=== PATIENT | male | born 1955 | race Caucasian/White ===

== ENCOUNTER → 2018-02-07 08:19 | Outpatient (CLI) | payer OTHER, SELFPAY ==
[2018-02-07 14:18] LABS: Hemoglobin A1C 5.6 % (0.0-7.0)
[2018-02-07 16:11] LABS: Chol/HDL Ratio 2.5 (1-3.5); Cholesterol 124 mg/dL (140-200); HDL Cholesterol 50 mg/dL (27-67); LDL Cholesterol 63 mg/dL (0-130); Triglycerides 55 mg/dL (30-200); VLDL Cholesterol 11 mg/dL (0-40)
== END ==
PROVIDERS: PCP Nurse Practitioner Family; Visit Provider Nurse Practitioner Family
DX: I25.10 Atherosclerotic heart disease of native coronary artery without angina pectoris (principal); Z95.5 Presence of coronary angioplasty implant and graft; Z79.899 Other long term (current) drug therapy
CPT/HCPCS: 36415; 80061; 83036

== ENCOUNTER → 2018-09-05 15:12 | Outpatient (CLI) | payer OTHER, SELFPAY ==
[2018-09-05 16:52] LABS: Anion Gap 11.5 mEq/L (5-15); Blood Urea Nitrogen 15 mg/dL (7-18); Calcium 9.3 mg/dL (8.5-10.1); Carbon Dioxide 28 mmol/L (21.0-32.0); Chloride 107 mmol/L (98-107); Creatinine,Serum 1.42 mg/dL (0.70-1.30); Estimated Glomerular Filt Rate 51 ml/min (>60); GFR (African American) 62 ML/MIN (>60); Glucose 111 mg/dL (74-106); Potassium 4.5 mmoL/L (3.5-5.1); Sodium 142 mmol/L (136-145)
[2018-09-05 17:16] LABS: Basophils # 0.1 K/mm3 (0-0.2); Basophils % 0.7 % (0.1-2.0); Eosinophils # 0.1 K/mm3 (0.0-0.4); Eosinophils % 1.9 % (0.1-12.0); Hematocrit 43.7 % (42.0-52.0); Hemoglobin 14.3 g/dL (14.1-18.0); Lymphocytes # 2.7 K/mm3 (0.7-4.5); Mean Corpuscular HGB Conc 32.8 g/dL (31.8-35.4); Mean Corpuscular Hemoglobin 29.5 pg (27.0-31.2); Mean Platelet Volume 7.3 fl (7.4-10.4); Monocytes # 0.4 K/mm3 (0.1-1.0); Monocytes % 5.6 % (1.7-9.3); Neutrophils % 54.8 % (37.0-80.0); Platelet Count 274 K/mm3 (142-424); Red Blood Count 4.85 M/mm3 (4.60-6.20); White Blood Count 7.2 K/mm3 (4.8-10.8)
== END ==
PROVIDERS: PCP Physician Assistant; Visit Provider Otolaryngology
DX: Z01.818 Encounter for other preprocedural examination (principal); L57.0 Actinic keratosis
CPT/HCPCS: 36415; 80048; 85025; 93005

== ENCOUNTER → 2019-11-17 09:18 | Outpatient (CLI) | payer OTHER, SELFPAY ==
[2019-11-17 14:16] LABS: Alanine Aminotransferase 46 U/L (12-78); Albumin Level 3.9 gm/dL (3.4-5.0); Albumin/Globulin Ratio 1.2 (1.1-1.8); Alkaline Phosphatase 101 U/L (46-116); Anion Gap 17.5 mEq/L (5-15); Aspartate Amino Transferase 20 U/L (15-37); Bilirubin,Total 0.7 mg/dL (0.2-1.0); Blood Urea Nitrogen 16 mg/dL (7-18); Carbon Dioxide 24 mmol/L (21.0-32.0); Chloride 106 mmol/L (98-107); Chol/HDL Ratio 2.5 (1-3.5); Cholesterol 143 mg/dL (140-200); Creatinine,Serum 0.92 mg/dL (0.70-1.30); Estimated Glomerular Filt Rate 83 ml/min (>60); GFR (African American) 101 ML/MIN (>60); Globulin 3.3 gm/dl (1.3-3.2); Glucose 91 mg/dL (74-106); HDL Cholesterol 57 mg/dL (27-67); LDL Cholesterol 73 mg/dL (0-130); Potassium 4.5 mmoL/L (3.5-5.1); Sodium 143 mmol/L (136-145); Total Protein,Serum 7.2 gm/dL (6.4-8.2); Triglycerides 63 mg/dL (30-200); VLDL Cholesterol 13 mg/dL (0-40)
== END ==
PROVIDERS: Visit Provider Nurse Practitioner Family
DX: E78.49 Other hyperlipidemia (principal)
CPT/HCPCS: 36415; 80053; 80061

== ENCOUNTER → 2020-11-16 08:39 | Outpatient (CLI) | payer MEDICAID, SELFPAY ==
[2020-11-16 14:03] LABS: Chloride 106 mmol/L (98-107); Sodium 138 mmol/L (136-145)
[2020-11-16 14:04] LABS: Potassium 4.7 mmoL/L (3.5-5.1)
[2020-11-16 14:06] LABS: Alanine Aminotransferase 37 U/L (12-78); Albumin Level 4.2 g/dl (3.5-5.0); Albumin/Globulin Ratio 1.4 (1.1-1.8); Alkaline Phosphatase 103 U/L (38-126); Anion Gap 10.7 mEq/L (5-15); Aspartate Amino Transferase 28 U/L (17-59); Bilirubin,Total 0.7 mg/dl (0.2-1.3); Blood Urea Nitrogen 18 mg/dl (9-20); Calcium 10.3 mg/dl (8.4-10.2); Carbon Dioxide 26 mmol/L (22.0-30.0); Chol/HDL Ratio 2.3 (1-3.5); Cholesterol 145 mg/dl (140-200); Estimated Glomerular Filt Rate 85 ml/min (>60); GFR (African American) 103 ML/MIN (>60); Glucose 106 mg/dl (74-100); HDL Cholesterol 63 mg/dl (40-60); Total Protein,Serum 7.2 g/dl (6.3-8.2); Triglycerides 87 mg/dl (30-150); VLDL Cholesterol 17 mg/dL (0-40)
[2020-11-16 14:18] LABS: Direct LDL Cholesterol 69.11 mg/dL (100-129)
== END ==
PROVIDERS: Visit Provider Internal Medicine Cardiovascular Disease
DX: E78.2 Mixed hyperlipidemia (principal)
CPT/HCPCS: 36415; 80053; 80061

== ENCOUNTER 2021-04-11 11:32 | Emergency (ER) | payer MEDICAID, SELFPAY ==
[2021-04-11 11:33] VITALS: BP 167/91; PULSE 88; RESP 16; TEMP 36.7; O2SAT 97; BMI 34.0
--- NOTE | 2021-04-11 11:53 | HMH.EDGENADL ---
ED Disposition Clinical Impression: Left flank pain Disposition: Home, Self-Care Condition on Discharge: Fair Instructions: DI for Joint Pain, DI for Flank Pain Additional Instructions: You have been evaluated for left flank pain. Does not appear to be a kidney stone or other abnormality in the abdomen. Please follow-up with your primary care doctor in 1 to 2 days for symptom recheck. Take anti-inflammatories like Tylenol or Motrin. Return to the emergency department for any new or worsening symptoms, pain, vomiting, other concerns. Referrals: Overall,Dave [Referring] - Time of Disposition: 14:53 - Critical Care Critical Care Time: No Attestation: On 04/11/21, the high probability of a clinically significant, sudden or life threatening deterioration of the following system(s) required my full and direct attention, intervention and personal management. The time I documented below is in addition to time spent performing reported procedures but includes the following listed in this critical care notation. Medical Decision Making - Medical Records Medical records reviewed: Yes: I reviewed the patient's medical records. - Brett Inquiry Pt receiving controlled substance: No Vital Signs: 04/11/21 11:33 04/11/21 12:00 04/11/21 15:18 Temperature 98.1 F 98.1 F Temperature Source Oral Pulse Rate 77 70 Pulse Rate [Right] 88 Respiratory Rate 16 18 20 Blood Pressure 158/95 H 146/89 H Blood Pressure [Right Arm] 167/91 H Blood Pressure Mean 114 Blood Pressure Mean [Right Arm] 116 Blood Pressure Source [Right Arm] Automatic Cuff Blood Pressure Position [Right Arm] Sitting 02 Sat by Pulse Oximetry 97 95 Oxygen Delivery Method Room Air Room Air Room Air - Lab Data Lab Results 04/11/21 12:06: WBC 8.2, RBC 5.39, Hgb 15.7, Hct 49.2, MCV 91.4, MCH 29.2, MCHC 31.9, RDW 13.5, Plt Count 252, MPV 7.9, Neut % (Auto) 53.9, Lymph % (Auto) 37.9, [place] % (Auto) 5.0, Eos % (Auto) 2.1, Baso % (Auto) 1.1, Neut # (Auto) 4.4, Lymph # (Auto) 3.1, [place] # (Auto) 0.4, Eos # (Auto) 0.2, Baso # (Auto) 0.1 04/11/21 12:06: Sodium 138, Potassium 4.3, Chloride 109 H, Carbon Dioxide 23, Anion Gap 10.3, BUN 14, Creatinine 0.90, Estimated Creat Clear 112, Estimated GFR 85, Est GFR ( Amer) 103, Glucose 107 H, Calcium 10.0, Total Bilirubin 0.8, AST 37, ALT 37, Alkaline Phosphatase 98, Total Protein 7.3, Albumin 4.4, Globulin 2.9, Albumin/Globulin Ratio 1.5 04/11/21 12:20: Urine Color Yellow, Urine Appearance Clear, Urine pH 5.5, Ur Specific [place] >= 1.030, Urine Protein Negative, Urine Glucose (UA) Negative, Urine Ketones Negative, Urine Blood Negative, Urine Nitrate Negative, Urine Bilirubin Negative, Urine Urobilinogen 0.2, Ur Leukocyte Esterase Negative Result diagrams: 04/11/21 12:06 04/11/21 12:06 Orders (Tests/Meds): ED MEDICATIONS Discontinued Medications Generic Name Dose Route Start Last Admin Trade Name Roxana PRN Reason Stop Dose Admin Iopamidol 75 ml 04/11/21 14:03 04/11/21 14:04 Iopamidol-370 (76%);100ml Bottle IV 04/11/21 14:04 75 ml ONCE ONE Administration Ketorolac Tromethamine 15 mg 04/11/21 14:51 04/11/21 14:59 Ketorolac 30mg/Ml Vial IV 04/11/21 14:52 15 mg ONCE ONE Administration Sodium Chloride 10 ml 04/11/21 14:03 04/11/21 14:04 Sodium Chloride 0.9% 10ml Syr (Rad Only) IV 04/11/21 14:04 10 ml ONCE ONE Administration Medical Decision Narrative: In summary this is a 65-year-old male presenting to the emergency department with left flank pain. Patient clinically stable on arrival. Vital signs within normal limits. Concern for kidney stone, mass, constipation, lumbar disc disease, osteoarthritis. Will obtain CBC, CMP, urinalysis, CT scan of the abdomen and pelvis. Initial laboratory results are reassuring. No leukocytosis. No renal insufficiency. Urinalysis shows no red blood cells or signs of infection. CT abdomen pelvis shows a hepatic cyst a
--- NOTE | 2021-04-11 11:54 | CT_ITS ---
PROCEDURE: CT ABDOMEN PELVIS W CON CLINICAL INDICATION: left flank pain COMPARISON: No exams were available for comparison TECHNIQUE: IV Contrast: 75ML Isovue 370 Oral Contrast None Axial images obtained with sagittal and coronal reformats. All CT scans at the facility use one or more dose reduction, viz: automated exposure control, ma/kV adjustment per patient size (including targeted exams where dose is matched to indication, i.e. head), or iterative reconstruction technique. FINDINGS: LOWER THORAX: Coronary artery stents and or calcification noted. 4 mm noncalcified nodule right lower lobe laterally. 4 mm noncalcified nodule left lower lobe laterally. ABDOMEN & PELVIS: Prior cholecystectomy. 8 mm hypodensity is present in the right hepatic lobe posteriorly consistent with a small cyst. The spleen, adrenal glands, have an unremarkable appearance. There is a punctate calcification in the junction of the body and head of the pancreas. There has been a prior cholecystectomy with mild prominence of the common hepatic duct measuring up to 13 mm. Mixed air in soft tissue density noted in the the region head of the pancreas consistent with a duodenal diverticulum. No renal or ureteral calculi. No hydronephrosis. Small hypodensity is present in the right kidney posteriorly at 5 mm and may be due to small renal cyst. No intestinal obstruction or free air. No evidence of appendicitis. No evidence of diverticulitis. Coarse central prostate calcifications are present. There are few scattered colonic diverticula. There are some nondistended fluid-filled loops of small bowel which are nonspecific. No acute bony findings. There are mild degenerative changes in the hips and lumbar spine. There is a small right inguinal hernia containing fat. IMPRESSION: 1. No acute finding. 2. Numerous incidental nonacute findings as described above. Dictated by: Jewel Foss MD 04/11/2021 14:33 Jewel Foss MD in [facility] 04/11/2021 14:33
[2021-04-11 12:00] VITALS: BP 158/95; PULSE 77; RESP 18; O2SAT 95
[2021-04-11 12:22] LABS: Basophils # 0.1 K/mm3 (0-0.2); Basophils % 1.1 % (0.1-2.0); Eosinophils # 0.2 K/mm3 (0.0-0.4); Eosinophils % 2.1 % (0.1-12.0); Hematocrit 49.2 % (42.0-52.0); Hemoglobin 15.7 g/dL (14.1-18.0); Lymphocytes # 3.1 K/mm3 (0.7-4.5); Lymphocytes % 37.9 % (10-50); Mean Corpuscular HGB Conc 31.9 g/dL (31.8-35.4); Mean Corpuscular Hemoglobin 29.2 pg (27.0-31.2); Mean Corpuscular Volume 91.4 fl (80-94); Mean Platelet Volume 7.9 fl (7.4-10.4); Monocytes # 0.4 K/mm3 (0.1-1.0); Neutrophils # 4.4 K/mm3 (1.8-7.8); Neutrophils % 53.9 % (37.0-80.0); Platelet Count 252 K/mm3 (142-424); Red Blood Count 5.39 M/mm3 (4.60-6.20); Red Cell Distribution Width 13.5 % (11.5-17.5); White Blood Count 8.2 K/mm3 (4.8-10.8)
[2021-04-11 12:30] LABS: Microscopic, Urine URINE MICROSCOPIC (MICROSCOPIC)
[2021-04-11 12:35] LABS: Appearance,Urine CLEAR (Clear); Bilirubin,Urine Negative (Negative); Blood, Urine Negative (Negative); Color,Urine YELLOW (Yellow); Glucose,Urine (UA) Negative (Negative); Ketones,Urine Negative (Negative); Leukocyte Esterase,Urine Negative (Negative); Nitrate,Urine Negative (Negative); PH,Urine 5.5 (5.0-8.5); Protein,Urine Negative (Negative); Specific Gravity, Urine >= 1.030 (1.005-1.030); Urobilinogen,Urine 0.2 EU/dl (0.2)
[2021-04-11 13:00] LABS: Alanine Aminotransferase 37 U/L (12-78); Albumin Level 4.4 g/dl (3.5-5.0); Albumin/Globulin Ratio 1.5 (1.1-1.8); Alkaline Phosphatase 98 U/L (38-126); Anion Gap 10.3 mEq/L (5-15); Aspartate Amino Transferase 37 U/L (17-59); Bilirubin,Total 0.8 mg/dl (0.2-1.3); Blood Urea Nitrogen 14 mg/dl (9-20); Carbon Dioxide 23 mmol/L (22.0-30.0); Chloride 109 mmol/L (98-107); Creatinine Clearance Estimated 112 mL/min (50-200); Estimated Glomerular Filt Rate 85 ml/min (>60); GFR (African American) 103 ML/MIN (>60); Globulin 2.9 g/dL (1.3-3.2); Glucose 107 mg/dl (74-100); Potassium 4.3 mmoL/L (3.5-5.1); Sodium 138 mmol/L (136-145); Total Protein,Serum 7.3 g/dl (6.3-8.2)
[2021-04-11 15:18] VITALS: BP 146/89; PULSE 70; RESP 20; TEMP 36.7; O2SAT 99
== END 2021-04-11 15:18 | disposition home or self-care (01) ==
PROVIDERS: Emergency Provider Emergency Medicine; PCP Nurse Practitioner Family
DX: M25.552 Pain in left hip (principal); R10.32 Left lower quadrant pain; I25.10 Atherosclerotic heart disease of native coronary artery without angina pectoris; I10 Essential (primary) hypertension; E78.5 Hyperlipidemia, unspecified; I25.2 Old myocardial infarction; Z79.899 Other long term (current) drug therapy
CPT/HCPCS: 74177; 80053; 81001; 85025; 96374; 99283; Q9967

== ENCOUNTER 2021-05-14 08:24 | Emergency (ER) | payer MEDICAID, SELFPAY ==
[2021-05-14] VITALS (12 sets, daily range): BP systolic 116–161; BP diastolic 58–93; PULSE 61–86; RESP 16–18; TEMP 36.8–36.9; O2SAT 97–98; BMI 32.5
--- NOTE | 2021-05-14 08:48 | CT_ITS ---
PROCEDURE INFORMATION: Exam: CT Abdomen And Pelvis Without Contrast Exam date and time: 05/14/2021 8:48 AM Age: 65 years old Clinical indication: Abdominal pain; Left; Patient HX: L. Flank pain ---. Gallbladder removed; Additional info: L. Flank pain TECHNIQUE: Imaging protocol: Computed tomography of the abdomen and pelvis without contrast. Radiation optimization: All CT scans at this facility use at least one of these dose optimization techniques: automated exposure control; mA and/or kV adjustment per patient size (includes targeted exams where dose is matched to clinical indication); or iterative reconstruction. COMPARISON: CT ABDOMEN PELVIS W CON 04/11/2021 1:56 PM FINDINGS: Liver: Normal. No mass. Gallbladder and bile ducts: Cholecystectomy The common duct is prominent. It measures 14 millimeters. This may be due to post cholecystectomy state and elderly status. However, if biliary obstruction is suspected clinically, recommend further evaluation Pancreas: Normal. No ductal dilation. Spleen: Normal. No splenomegaly. Adrenal glands: Normal. No mass. Kidneys and ureters: Punctate nonobstructing left renal calculus No ureteral calculus Stomach and bowel: No obstruction. No mucosal thickening. No diverticulitis Appendix: Normal appendix Intraperitoneal space: 2.6 collection of air and debris projecting off of the 3rd duodenum. Most likely represents duodenal diverticulum., Less likely duodenal ulcer. Vasculature: Coronary artery calcifications may indicate coronary artery disease. Lymph nodes: Unremarkable. No enlarged lymph nodes. Urinary bladder: Unremarkable as visualized. Reproductive: Unremarkable as visualized. Bones/joints: Unremarkable. No acute fracture. Soft tissues: Mesh herniorrhaphy anterior in the abdomen adjacent to the umbilical region Bilateral inguinal hernias contain fat IMPRESSION: There is no evidence of ureteral calcifications. No diverticulitis 2.6 collection of air and debris projecting off of the 3rd duodenum. Most likely represents duodenal diverticulum., Less likely duodenal ulcer.
[2021-05-14 08:49] LABS: Microscopic, Urine URINE MICROSCOPIC (MICROSCOPIC)
--- NOTE | 2021-05-14 08:49 | HMH.EDGENADL ---
ED Disposition Clinical Impression: Left flank pain Disposition: Home, Self-Care Condition on Discharge: Good Instructions: DI for Pleurisy Prescriptions: methylPREDNISolone [Medrol] 4 mg PO DIRECTED #21 pack Transmission Status: Pending to [id number] Referrals: Provider,Referral, [Primary Care Provider] - - Critical Care Critical Care Time: No Attestation: On 05/14/21, the high probability of a clinically significant, sudden or life threatening deterioration of the following system(s) required my full and direct attention, intervention and personal management. The time I documented below is in addition to time spent performing reported procedures but includes the following listed in this critical care notation. Medical Decision Making - Medical Records Medical records reviewed: Yes: I reviewed the patient's medical records. - Brett Inquiry Pt receiving controlled substance: No Vital Signs: 05/14/21 08:26 05/14/21 09:12 05/14/21 09:33 Temperature 98.5 F Temperature Source Oral Pulse Rate 70 71 Pulse Rate [Right] 86 Respiratory Rate 16 Blood Pressure 157/83 H Blood Pressure [Right Arm] 161/93 H Blood Pressure Mean 110 Blood Pressure Mean [Right Arm] 115 02 Sat by Pulse Oximetry 97 98 98 05/14/21 09:45 05/14/21 10:00 05/14/21 10:15 Temperature Temperature Source Pulse Rate 67 62 64 Pulse Rate [Right] Respiratory Rate Blood Pressure 156/88 H Blood Pressure [Right Arm] Blood Pressure Mean 107 Blood Pressure Mean [Right Arm] 02 Sat by Pulse Oximetry 97 97 97 05/14/21 10:30 05/14/21 11:00 05/14/21 11:01 Temperature Temperature Source Pulse Rate 61 Pulse Rate [Right] Respiratory Rate Blood Pressure 116/58 L 134/68 Blood Pressure [Right Arm] Blood Pressure Mean 84 90 Blood Pressure Mean [Right Arm] 02 Sat by Pulse Oximetry 97 - Lab Data Lab results reviewed: Yes: I reviewed the patient's lab results. Lab Results 05/14/21 08:37: WBC 7.9, RBC 5.16, Hgb 15.7, Hct 45.6, MCV 88.3, MCH 30.5, MCHC 34.5, RDW 13.9, Plt Count 214, MPV 8.1, Neut % (Auto) 60.3, Lymph % (Auto) 31.8, [place] % (Auto) 4.0, Eos % (Auto) 3.1, Baso % (Auto) 0.8, Neut # (Auto) 4.8, Lymph # (Auto) 2.5, [place] # (Auto) 0.3, Eos # (Auto) 0.2, Baso # (Auto) 0.1 05/14/21 08:37: Sodium 141, Potassium 3.9, Chloride 108 H, Carbon Dioxide 25, Anion Gap 11.9, BUN 14, Creatinine 0.90, Estimated Creat Clear 107, Estimated GFR 85, Est GFR ( Amer) 103, Glucose 151 H, Calcium 9.4, Total Bilirubin 0.8, AST 25, ALT 29, Alkaline Phosphatase 102, Total Protein 7.1, Albumin 4.3, Globulin 2.8, Albumin/Globulin Ratio 1.5 05/14/21 08:37: Lipase 83 05/14/21 08:45: Urine Color Yellow, Urine Appearance Clear, Urine pH 5.5, Ur Specific [place] >= 1.030, Urine Protein Negative, Urine Glucose (UA) Negative, Urine Ketones Negative, Urine Blood Negative, Urine Nitrate Negative, Urine Bilirubin 1+ A, Urine Urobilinogen 0.2, Ur Leukocyte Esterase Negative, Urine RBC None, Urine WBC 3-5, Ur Squamous Epith Cells 3-5, Calcium Oxalate Crystal 1+, Urine Bacteria None Result diagrams: 05/14/21 08:37 05/14/21 08:37 Orders (Tests/Meds): ED MEDICATIONS Discontinued Medications Generic Name Dose Route Start Last Admin Trade Name Freq PRN Reason Stop Dose Admin Ketorolac Tromethamine 30 mg 05/14/21 08:49 05/14/21 09:13 Ketorolac 30mg/Ml Vial IV 05/14/21 08:50 30 mg ONCE ONE Administration Ondansetron HCl 8 mg 05/14/21 08:49 05/14/21 09:13 Ondansetron 4mg/2ml Vial IV 05/14/21 08:50 8 mg ONCE ONE Administration ORDERS Category Date Time Status Lactic Acid Stat Lab 05/14/21 08:48 Ordered - CT Data CT Scan: Abdomen, Pelvis Time Received: 11:[address] Reviewed: Yes: I have reviewed the patient's CT results, I have viewed the radiologist's interpretation Preliminary Findings: Normal/NAD Medical Decision Narrative: Lab work unremarkable
[2021-05-14 08:50] LABS: Appearance,Urine CLEAR (Clear); Blood, Urine Negative (Negative); Color,Urine YELLOW (Yellow); Glucose,Urine (UA) Negative (Negative); Ketones,Urine Negative (Negative); Leukocyte Esterase,Urine Negative (Negative); Nitrate,Urine Negative (Negative); PH,Urine 5.5 (5.0-8.5); Protein,Urine Negative (Negative); Specific Gravity, Urine >= 1.030 (1.005-1.030); Urobilinogen,Urine 0.2 EU/dl (0.2)
[2021-05-14 08:50] LABS: Basophils # 0.1 K/mm3 (0-0.2); Basophils % 0.8 % (0.1-2.0); Eosinophils # 0.2 K/mm3 (0.0-0.4); Eosinophils % 3.1 % (0.1-12.0); Hematocrit 45.6 % (42.0-52.0); Hemoglobin 15.7 g/dL (14.1-18.0); Lymphocytes # 2.5 K/mm3 (0.7-4.5); Lymphocytes % 31.8 % (10-50); Mean Corpuscular HGB Conc 34.5 g/dL (31.8-35.4); Mean Corpuscular Hemoglobin 30.5 pg (27.0-31.2); Mean Corpuscular Volume 88.3 fl (80-94); Mean Platelet Volume 8.1 fl (7.4-10.4); Monocytes # 0.3 K/mm3 (0.1-1.0); Neutrophils # 4.8 K/mm3 (1.8-7.8); Neutrophils % 60.3 % (37.0-80.0); Platelet Count 214 K/mm3 (142-424); Red Blood Count 5.16 M/mm3 (4.60-6.20); Red Cell Distribution Width 13.9 % (11.5-17.5); White Blood Count 7.9 K/mm3 (4.8-10.8)
[2021-05-14 08:51] LABS: Chloride 108 mmol/L (98-107); Potassium 3.9 mmoL/L (3.5-5.1); Sodium 141 mmol/L (136-145)
[2021-05-14 08:52] LABS: Bilirubin,Urine 1+ (Negative)
[2021-05-14 08:53] LABS: Alanine Aminotransferase 29 U/L (12-78); Aspartate Amino Transferase 25 U/L (17-59); Blood Urea Nitrogen 14 mg/dl (9-20); Creatinine Clearance Estimated 107 mL/min (50-200); Estimated Glomerular Filt Rate 85 ml/min (>60); GFR (African American) 103 ML/MIN (>60)
[2021-05-14 08:54] LABS: Albumin Level 4.3 g/dl (3.5-5.0); Albumin/Globulin Ratio 1.5 (1.1-1.8); Alkaline Phosphatase 102 U/L (38-126); Anion Gap 11.9 mEq/L (5-15); Bilirubin,Total 0.8 mg/dl (0.2-1.3); Calcium 9.4 mg/dl (8.4-10.2); Carbon Dioxide 25 mmol/L (22.0-30.0); Globulin 2.8 g/dL (1.3-3.2); Glucose 151 mg/dl (74-100); Total Protein,Serum 7.1 g/dl (6.3-8.2)
[2021-05-14 09:03] LABS: Lipase 83 U/L (23-300)
[2021-05-14 09:21] LABS: Calcium Oxalate Crystals,Urine 1+ /lpf
--- NOTE | 2021-05-14 11:07 | PC.NURSE ---
[address] about [facility] report. spoke with julissa. she states she will call [facility] and see how long. Julissa in ct called back and states that they spoke with [facility] and its being bumped to emergency status and should just be a few minutes.
== END 2021-05-14 12:52 | disposition home or self-care (01) ==
PROVIDERS: Emergency Provider Emergency Medicine
DX: R10.12 Left upper quadrant pain (principal); E78.5 Hyperlipidemia, unspecified; I10 Essential (primary) hypertension; I25.2 Old myocardial infarction; Z79.899 Other long term (current) drug therapy
CPT/HCPCS: 74176; 80053; 81001; 83690; 85025; 96374; 96375; 99283; J2405

== ENCOUNTER 2021-09-01 09:41 | Emergency (ER) | payer MEDICAID, SELFPAY ==
--- NOTE | 2021-09-01 09:39 | ECG_ITS ---
APPROVED REPORT Exam: Resting ECG HR:72 bpm ECG Measurements Heart Rate 72 AXES ME 174 P 36 QRSd 102 QRS 46 QT 350 T 64 QTc 383 Conclusion Normal sinus rhythm Nonspecific T wave abnormality Abnormal ECG Electronically signed by : Kayode Haddad MD 09/01/2021 17:48:20
[2021-09-01 09:42] VITALS: BP 160/91; PULSE 77; RESP 16; TEMP 36.9; O2SAT 98; BMI 33.4
--- NOTE | 2021-09-01 09:46 | XR_ITS ---
PROCEDURE: XR CHEST 2V CLINICAL HISTORY: chest pain COMPARISON: No exams were available for comparison FINDINGS: The cardiomediastinal silhouette and pulmonary vascularity are within normal limits. The lungs are clear without infiltrates, suspicious nodules, or pleural effusions. No acute bony abnormalities. There mild to moderate multilevel degenerate changes of the thoracic spine IMPRESSION: No acute findings. Dictated by: Dr. Alden Deleon MD 09/01/2021 10:47 Dr. Alden Deleon MD in [place] 09/01/2021 10:47
--- NOTE | 2021-09-01 09:46 | CT_ITS ---
PROCEDURE: CT ANGIO CHEST PE PROTOCOL CLINCIAL INDICATION: left sided chest pain, history of stents COMPARISON: No exams were available for comparison TECHNIQUE: IV Contrast: 70ML Isovue 370 Axial images obtained with sagittal and coronal reformats. All CT scans at the facility use one or more dose reduction, viz: automated exposure control, ma/kV adjustment per patient size (including targeted exams where dose is matched to indication, i.e. head), or iterative reconstruction technique. FINDINGS: HEART AND MEDIASTINAL STRUCTURES: Cardiac size is normal. There are coronary artery stents noted. There is mild tortuosity of the descending thoracic aorta. There is excellent vascular opacification and there are no pulmonary emboli identified. LUNGS AND PLEURAL SPACES: The lung jo are well-expanded and appear clear of infiltrate. There is a calcified granuloma subpleural location left upper lobe. There is no pleural fluid. BONY STRUCTURES: There are moderate degenerate changes mid and lower thoracic spine. UPPER ABDOMEN: Post cholecystectomy ADDITIONAL FINDINGS: No other significant abnormalities. IMPRESSION: Negative for pulmonary emboli, see discussion above Dictated by: Dr. Alden Deleon MD 09/01/2021 10:46 Dr. Alden Deleon MD in [facility] 09/01/2021 10:46
[2021-09-01 09:52] VITALS: BP 130/84; PULSE 78; RESP 22; O2SAT 98
[2021-09-01 10:00] VITALS: BP 140/85
[2021-09-01 10:02] LABS: Basophils # 0.1 K/mm3 (0-0.2); Basophils % 1.8 % (0.1-2.0); Eosinophils # 0.2 K/mm3 (0.0-0.4); Eosinophils % 2.6 % (0.1-12.0); Hemoglobin 16.2 g/dL (14.1-18.0); Lymphocytes # 2.5 K/mm3 (0.7-4.5); Lymphocytes % 38.1 % (10-50); Mean Corpuscular HGB Conc 33.1 g/dL (31.8-35.4); Mean Corpuscular Hemoglobin 31.6 pg (27.0-31.2); Mean Corpuscular Volume 95.6 fl (80-94); Monocytes # 0.3 K/mm3 (0.1-1.0); Monocytes % 4.3 % (1.7-9.3); Neutrophils # 3.4 K/mm3 (1.8-7.8); Neutrophils % 53.1 % (37.0-80.0); Platelet Count 229 K/mm3 (142-424); Red Blood Count 5.13 M/mm3 (4.60-6.20); Red Cell Distribution Width 14.3 % (11.5-17.5); White Blood Count 6.5 K/mm3 (4.8-10.8)
[2021-09-01 10:09] LABS: Chloride 106 mmol/L (98-107); Sodium 140 mmol/L (136-145)
[2021-09-01 10:09] LABS: Coronavirus 19, PCR Not Detected (NotDetected); Influenza A, PCR Not Detected (NotDetected); Influenza B, PCR Not Detected (NotDetected)
[2021-09-01 10:10] LABS: Potassium 4.4 mmoL/L (3.5-5.1)
[2021-09-01 10:12] LABS: Blood Urea Nitrogen 9 mg/dl (9-20); Creatinine Clearance Estimated 107 mL/min (50-200); Estimated Glomerular Filt Rate 114 ml/min (>60); GFR (African American) 138 ML/MIN (>60)
[2021-09-01 10:13] LABS: Anion Gap 10.4 mEq/L (5-15); Calcium 9.9 mg/dl (8.4-10.2); Carbon Dioxide 28 mmol/L (22.0-30.0); Glucose 124 mg/dl (74-100)
[2021-09-01 10:27] LABS: Troponin I < 0.01 ng/ml (0.00-0.034)
--- NOTE | 2021-09-01 10:27 | HMH.EDGENADL ---
ED Disposition Clinical Impression: Chronic thoracic back pain Qualifiers: Back pain laterality: bilateral Qualified Code(s): M54.6 - Pain in thoracic spine Disposition: Home, Self-Care Condition on Discharge: Good Prescriptions: methylPREDNISolone [Medrol 4mg tab] 4 mg PO DIRECTED #21 tab Transmission Status: Received by [id number] Referrals: Provider,Referral, [Primary Care Provider] - - Critical Care Critical Care Time: No Attestation: On 09/01/21, the high probability of a clinically significant, sudden or life threatening deterioration of the following system(s) required my full and direct attention, intervention and personal management. The time I documented below is in addition to time spent performing reported procedures but includes the following listed in this critical care notation. Medical Decision Making - Medical Records Medical records reviewed: Yes: I reviewed the patient's medical records. - Brett Inquiry Pt receiving controlled substance: No Vital Signs: 09/01/21 09:42 09/01/21 09:52 09/01/21 10:00 Temperature 98.4 F Temperature Source Oral Pulse Rate 78 Pulse Rate [Radial] 77 Respiratory Rate 16 22 Blood Pressure 130/84 140/85 Blood Pressure [Right Arm] 160/91 H Blood Pressure Mean 99 95 Blood Pressure Mean [Right Arm] 114 Blood Pressure Position Blood Pressure Position [Right Arm] Sitting 02 Sat by Pulse Oximetry 98 98 Oxygen Delivery Method Room Air 09/01/21 10:38 09/01/21 11:00 09/01/21 11:52 Temperature 98 F Temperature Source Oral Pulse Rate 70 67 78 Pulse Rate [Radial] Respiratory Rate 20 17 18 Blood Pressure 130/84 165/104 H 140/91 H Blood Pressure [Right Arm] Blood Pressure Mean Blood Pressure Mean [Right Arm] Blood Pressure Position Sitting Blood Pressure Position [Right Arm] 02 Sat by Pulse Oximetry 99 96 Oxygen Delivery Method Room Air - Lab Data Lab Results 09/01/21 09:50: WBC 6.5, RBC 5.13, Hgb 16.2, Hct 49.0, MCV 95.6 H, MCH 31.6 H, MCHC 33.1, RDW 14.3, Plt Count 229, MPV 9.0, Neut % (Auto) 53.1, Lymph % (Auto) 38.1, [place] % (Auto) 4.3, Eos % (Auto) 2.6, Baso % (Auto) 1.8, Neut # (Auto) 3.4, Lymph # (Auto) 2.5, [place] # (Auto) 0.3, Eos # (Auto) 0.2, Baso # (Auto) 0.1 09/01/21 09:50: Sodium 140, Potassium 4.4, Chloride 106, Carbon Dioxide 28, Anion Gap 10.4, BUN 9, Creatinine 0.70, Estimated Creat Clear 107, Estimated GFR 114, Est GFR ( Amer) 138, Glucose 124 H, Calcium 9.9, Troponin I < 0.01 09/01/21 10:02: SARS-CoV-2 (PCR) Not detected, Influenza A Untype (PCR) Not detected, Influenza Type B (PCR) Not detected Result diagrams: 09/01/21 09:50 09/01/21 09:50 Orders (Tests/Meds): ED MEDICATIONS Discontinued Medications Generic Name Dose Route Start Last Admin Trade Name Freq PRN Reason Stop Dose Admin Aspirin 324 mg 09/01/21 11:04 09/01/21 11:17 Aspirin 81mg Chewable Tablet PO 09/01/21 11:05 324 mg ONCE ONE Administration Iopamidol 70 ml 09/01/21 10:32 09/01/21 10:34 Iopamidol-370 (76%);100ml Bottle IV 09/01/21 10:33 70 ml ONCE ONE Administration Sodium Chloride 40 ml 09/01/21 10:32 09/01/21 10:33 0.9 % Sodium Chloride 50 Ml Vial IV 09/01/21 10:33 40 ml ONCE ONE Administration Medical Decision Narrative: Patient is a 65-year-old male presents the ED today for further evaluation of left-sided back pain. Patient is well-appearing on initial evaluation in no acute distress and vital signs are stable. Differential diagnosis includes aortic dissection, pulmonary embolism, pneumonia, shingles, musculoskeletal back pain spine osteoarthritis. Will further evaluate patient with CBC CMP, I believe that a CT scan of the chest is indicated in this patient with this chronic symptom, which is mildly worse today, he is at low risk for PE but does not PERC out secondary to age. CT scan was obtained and independently interpreted there is no evidenc
[2021-09-01 10:38] VITALS: BP 130/84; PULSE 70; RESP 20; O2SAT 99
[2021-09-01 11:00] VITALS: BP 165/104; PULSE 67; RESP 17; O2SAT 96
[2021-09-01 11:52] VITALS: BP 140/91; PULSE 78; RESP 18; TEMP 36.6; O2SAT 98
== END 2021-09-01 11:54 | disposition home or self-care (01) ==
PROVIDERS: Emergency Medicine; Emergency Provider Student in an Organized Health Care Education/Training Program
DX: R07.9 Chest pain, unspecified (principal); M54.6 Pain in thoracic spine; Z20.822 Contact with and (suspected) exposure to COVID-19; I25.10 Atherosclerotic heart disease of native coronary artery without angina pectoris; I11.0 Hypertensive heart disease with heart failure
CPT/HCPCS: 71046; 71275; 80048; 84484; 85025; 93005; 99283; C9803; Q9967; U0003; U0005

== ENCOUNTER 2022-05-10 19:34 | Observation (INO) | payer MEDICAID, SELFPAY ==
[2022-05-10] VITALS (9 sets, daily range): BP systolic 137–162; BP diastolic 80–94; PULSE 82–96; RESP 18; TEMP 36.8–37; O2SAT 96–99; BMI 34.0; BMI 35.1
--- NOTE | 2022-05-10 19:40 | ECG_ITS ---
APPROVED REPORT Exam: Resting ECG HR:84 bpm ECG Measurements Heart Rate 84 AXES [place] 212 P 63 QRSd 110 QRS 68 QT 353 T 75 QTc 394 Conclusion SINUS RHYTHM WITH FIRST DEGREE AV BLOCK NONSPECIFIC T-WAVE ABNORMALITY ABNORMAL ECG UNCONFIRMED REPORT Electronically signed by : Kayode Haddad MD 05/12/2022 17:33:44
[2022-05-10 20:08] LABS: Basophils # 0.2 K/mm3 (0-0.2); Basophils % 2.7 % (0.1-2.0); Eosinophils # 0.2 K/mm3 (0.0-0.4); Eosinophils % 2.8 % (0.1-12.0); Hematocrit 44.6 % (42.0-52.0); Hemoglobin 15.3 g/dL (14.1-18.0); Lymphocytes # 2.4 K/mm3 (0.7-4.5); Mean Corpuscular HGB Conc 34.3 g/dL (31.8-35.4); Mean Corpuscular Hemoglobin 31.7 pg (27.0-31.2); Mean Corpuscular Volume 92.4 fl (80-94); Mean Platelet Volume 8.5 fl (7.4-10.4); Monocytes # 0.5 K/mm3 (0.1-1.0); Monocytes % 5.7 % (1.7-9.3); Neutrophils # 5.1 K/mm3 (1.8-7.8); Neutrophils % 60.7 % (37.0-80.0); Platelet Count 235 K/mm3 (142-424); Red Blood Count 4.83 M/mm3 (4.60-6.20); Red Cell Distribution Width 13.6 % (11.5-17.5); White Blood Count 8.5 K/mm3 (4.8-10.8)
[2022-05-10 20:12] LABS: Blood Urea Nitrogen 23 mg/dl (9-20); Calcium 9.3 mg/dl (8.4-10.2); Carbon Dioxide 25 mmol/L (22.0-30.0); Chloride 105 mmol/L (98-107); Creatinine Clearance Estimated 110 mL/min (50-200); Estimated Glomerular Filt Rate 75 ml/min (>60); GFR (African American) 91 ML/MIN (>60); Glucose 140 mg/dl (74-100); Magnesium 1.7 mg/dl (1.6-2.3); Potassium 4.1 mmoL/L (3.5-5.1)
[2022-05-10 20:17] LABS: C-Reactive Protein 1.8 mg/L (0-4)
[2022-05-10 20:29] LABS: Troponin I < 0.01 ng/ml (0.00-0.034)
[2022-05-10 20:30] LABS: Procalcitonin 0.052 ng/mL (0.0-2.0)
[2022-05-10 20:33] LABS: Microscopic, Urine URINE MICROSCOPIC (MICROSCOPIC)
[2022-05-10 20:43] LABS: Appearance,Urine CLEAR (Clear); Bilirubin,Urine Negative (Negative); Blood, Urine TRACE-I (Negative); Color,Urine YELLOW (Yellow); Glucose,Urine (UA) Negative (Negative); Ketones,Urine Negative (Negative); Leukocyte Esterase,Urine Negative (Negative); Nitrate,Urine Negative (Negative); PH,Urine 5.5 (5.0-8.5); Protein,Urine 1+ (Negative); Specific Gravity, Urine >= 1.030 (1.005-1.030); Urobilinogen,Urine 0.2 EU/dl (0.2)
[2022-05-10 20:45] LABS: Anion Gap 11.1 mEq/L (5-15); Sodium 137 mmol/L (136-145)
[2022-05-10 20:56] LABS: Bacteria,Urine Trace /lpf; Calcium Oxalate Crystals,Urine 4+ /lpf; WBC,Urine Occasional #/hpf (0-3)
--- NOTE | 2022-05-10 21:16 | HMH.EDSYNC ---
ED Disposition Clinical Impression: Syncope Qualifiers: Syncope type: unspecified Qualified Code(s): R55 - Syncope and collapse Disposition: Admitted as Observation Condition on Discharge: Good Referrals: Shyla Martinez APRN [Primary Care Provider] - - Critical Care Critical Care Time: No Attestation: On 05/10/22, the high probability of a clinically significant, sudden or life threatening deterioration of the following system(s) required my full and direct attention, intervention and personal management. The time I documented below is in addition to time spent performing reported procedures but includes the following listed in this critical care notation. Medical Decision Making - Medical Records Medical records reviewed: Yes: I reviewed the patient's medical records. - Brett Inquiry Pt receiving controlled substance: No Vital Signs: 05/10/22 19:33 05/10/22 20:00 05/10/22 21:01 Temperature 98.6 F Temperature Source Oral Pulse Rate [Apical] 82 Pulse Rate [Orthostatic Lying Apical] Pulse Rate [Orthostatic Sitting Apical] Pulse Rate [Orthostatic Standing Apical] Respiratory Rate 18 Blood Pressure 144/85 H 148/87 H Blood Pressure [Orthostatic Lying Right Arm] Blood Pressure [Orthostatic Sitting] Blood Pressure [Orthostatic Standing] Blood Pressure [Right Arm] 153/84 H Blood Pressure Mean 109 107 Blood Pressure Mean [Right Arm] 107 Blood Pressure Source [Right Arm] Automatic Cuff Blood Pressure Position [Right Arm] Sitting 02 Sat by Pulse Oximetry 96 Oxygen Delivery Method Room Air 05/10/22 21:17 05/10/22 21:18 05/10/22 21:19 Temperature Temperature Source Pulse Rate [Apical] Pulse Rate [Orthostatic Lying Apical] Pulse Rate [Orthostatic Sitting Apical] Pulse Rate [Orthostatic Standing Apical] Respiratory Rate Blood Pressure 137/80 159/93 H 162/94 H Blood Pressure [Orthostatic Lying Right Arm] Blood Pressure [Orthostatic Sitting] Blood Pressure [Orthostatic Standing] Blood Pressure [Right Arm] Blood Pressure Mean 99 115 114 Blood Pressure Mean [Right Arm] Blood Pressure Source [Right Arm] Blood Pressure Position [Right Arm] 02 Sat by Pulse Oximetry Oxygen Delivery Method 05/10/22 21:30 05/10/22 21:31 Temperature Temperature Source Pulse Rate [Apical] Pulse Rate [Orthostatic Lying Apical] 87 Pulse Rate [Orthostatic Sitting Apical] 96 H Pulse Rate [Orthostatic Standing Apical] 94 H Respiratory Rate Blood Pressure 139/84 Blood Pressure [Orthostatic Lying Right Arm] 137/80 Blood Pressure [Orthostatic Sitting] 159/93 H Blood Pressure [Orthostatic Standing] 162/94 H Blood Pressure [Right Arm] Blood Pressure Mean 104 Blood Pressure Mean [Right Arm] Blood Pressure Source [Right Arm] Blood Pressure Position [Right Arm] 02 Sat by Pulse Oximetry Oxygen Delivery Method - Lab Data Lab results reviewed: Yes: I reviewed the patient's lab results. Lab Results 05/10/22 19:53: WBC 8.5, RBC 4.83, Hgb 15.3, Hct 44.6, MCV 92.4, MCH 31.7 H, MCHC 34.3, RDW 13.6, Plt Count 235, MPV 8.5, Neut % (Auto) 60.7, Lymph % (Auto) 28.0, [place] % (Auto) 5.7, Eos % (Auto) 2.8, Baso % (Auto) 2.7 H, Neut # (Auto) 5.1, Lymph # (Auto) 2.4, [place] # (Auto) 0.5, Eos # (Auto) 0.2, Baso # (Auto) 0.2, ESR 16 05/10/22 19:53: Sodium 137, Potassium 4.1, Chloride 105, Carbon Dioxide 25, Anion Gap 11.1, BUN 23 H, Creatinine 1.00, Estimated Creat Clear 110, Estimated GFR 75, Est GFR ( Amer) 91, Glucose 140 H, Calcium 9.3, Magnesium 1.7, Troponin I < 0.01, C-Reactive Protein 1.8, Procalcitonin 0.052 05/10/22 20:27: Urine Color Yellow, Urine Appearance Clear, Urine pH 5.5, Ur Specific [place] >= 1.030, Urine Protein 1+, Urine Glucose (UA) Negative, Urine Ketones Negative, Urine Blood Trace-i, Urine Nitrate Negative, Urine Bilirubin Negative, Urine Urobilinogen 0.2, Ur Leukocyte Esterase Negative, Urine RBC 3-5, Urine WBC Occ
--- NOTE | 2022-05-10 21:56 | CT_ITS ---
PROCEDURE INFORMATION: Exam: CT Head Without Contrast Exam date and time: 05/10/2022 10:08 PM Age: 66 years old Clinical indication: Patient HX: Syncopal episode, passed out; Additional info: Weakness/gait abn TECHNIQUE: Imaging protocol: Computed tomography of the head without contrast. Radiation optimization: All CT scans at this facility use at least one of these dose optimization techniques: automated exposure control; mA and/or kV adjustment per patient size (includes targeted exams where dose is matched to clinical indication); or iterative reconstruction. COMPARISON: No relevant prior studies available. FINDINGS: Brain: Normal. No hemorrhage. Unremarkable white matter. No mass effect. Cerebral ventricles: No ventriculomegaly. Paranasal sinuses: There is mucosal thickening of the left sphenoid sinus. There is mucosal thickening of a right ethmoid air cell. Mastoid air cells: Visualized mastoid air cells are well aerated. Bones/joints: Unremarkable. No acute fracture. Soft tissues: Unremarkable. IMPRESSION: 1. No acute intracranial abnormality. 2. Chronic left sphenoid sinusitis.
[2022-05-10 21:57] LABS: Erythrocyte Sedimentation Rate 16 mm/hr (0-20)
--- NOTE | 2022-05-10 22:57 | PC.NURSE ---
PT able to stand and use urinal with no assistance. Pt resting well.
--- NOTE | 2022-05-10 23:01 | PC.NURSE ---
LILY STEWARD speaking with Dr. Haddad
--- NOTE | 2022-05-10 23:08 | PC.NURSE ---
PATIENT ADMITTED TO [address] OLVERA WITH DX OF SYNCOPE
[2022-05-10 23:14] LABS: Coronavirus 19, PCR Not Detected (NotDetected); Influenza A, PCR Not Detected (NotDetected); Influenza B, PCR Not Detected (NotDetected)
[2022-05-10 23:20] LABS: Troponin I < 0.01 ng/ml (0.00-0.034)
--- NOTE | 2022-05-10 23:45 | PC.NURSE ---
pt arrived to floor via wheelchair at this time
[2022-05-11] VITALS: BP 159/92; PULSE 86; RESP 18; TEMP 36.9; O2SAT 96
--- NOTE | 2022-05-11 01:22 | PC.NURSE ---
Pt's rectal temp at 00:00 vitals 103.3. Removed covers, turned thermostat down, placed ice packs on patient, and put fan in patient's room. Admin meds per JAN.
[2022-05-11 02:00] VITALS: PULSE 80
[2022-05-11 02:42] LABS: Troponin I < 0.01 ng/ml (0.00-0.034)
[2022-05-11 04:00] VITALS: BP 160/90; PULSE 73; PULSE 75; RESP 20; TEMP 36.5; O2SAT 97
--- NOTE | 2022-05-11 05:38 | PC.NURSE ---
Patient has rested intermittently t/o shift. Ambulates to the bathroom independently. Pt has not had further syncope episodes since arriving to the floor. Pt reports no pain. A/O x3.
[2022-05-11 07:08] LABS: Basophils # 0.1 K/mm3 (0-0.2); Eosinophils # 0.1 K/mm3 (0.0-0.4); Eosinophils % 1.7 % (0.1-12.0); Hematocrit 43.6 % (42.0-52.0); Hemoglobin 14.8 g/dL (14.1-18.0); Lymphocytes % 25.9 % (10-50); Mean Corpuscular HGB Conc 33.8 g/dL (31.8-35.4); Mean Corpuscular Hemoglobin 31.2 pg (27.0-31.2); Mean Corpuscular Volume 92.3 fl (80-94); Mean Platelet Volume 8.5 fl (7.4-10.4); Monocytes # 0.4 K/mm3 (0.1-1.0); Monocytes % 5.5 % (1.7-9.3); Neutrophils # 5.1 K/mm3 (1.8-7.8); Neutrophils % 65.8 % (37.0-80.0); Platelet Count 245 K/mm3 (142-424); Red Blood Count 4.72 M/mm3 (4.60-6.20); Red Cell Distribution Width 13.6 % (11.5-17.5); White Blood Count 7.7 K/mm3 (4.8-10.8)
[2022-05-11 07:11] LABS: Chloride 108 mmol/L (98-107)
[2022-05-11 07:12] LABS: Potassium 4.3 mmoL/L (3.5-5.1); Sodium 136 mmol/L (136-145)
[2022-05-11 07:15] LABS: Anion Gap 8.3 mEq/L (5-15); Blood Urea Nitrogen 18 mg/dl (9-20); Calcium 9.3 mg/dl (8.4-10.2); Carbon Dioxide 24 mmol/L (22.0-30.0); Creatinine Clearance Estimated 114 mL/min (50-200); Estimated Glomerular Filt Rate 97 ml/min (>60); GFR (African American) 118 ML/MIN (>60); Glucose 120 mg/dl (74-100)
--- NOTE | 2022-05-11 07:29 | HMH.PHAVTE ---
[facility] Pharmacy VTE Monitoring - Patient Demographics Admission date: 05/10/22 Report Date: 05/11/22 Time: 07:29 Allergies/Adverse Reactions: Patient Allergies No Known Allergies Allergy (Verified 05/14/21 09:07) Height: 1.75 m Weight: 107.586 kg Patient Problems: Current Active Problems Syncope (Acute) - VTE Risk Labs: VTE Related Lab Results Hgb 14.8 g/dL (14.1-18.0) 05/11/22 06:40 Hct 43.6 % (42.0-52.0) 05/11/22 06:40 Plt Count 245 K/mm3 (142-424) 05/11/22 06:40 BUN 18 mg/dl (9-20) 05/11/22 06:40 Creatinine 0.80 mg/dl (0.66-1.25) 05/11/22 06:40 Estimated Creat Clear 114 mL/min (50-200) 05/11/22 06:40 VTE Score: 4 VTE Risk Level: Low Risk - Prophylaxis VTE Prophylaxis Ordered?: Yes Types of VTE Prophylaxis: TEDS Knee High Location of Applied Device: Bilateral Lower Extremeties
--- NOTE | 2022-05-11 07:30 | HMH.PHAINT ---
MEDICATION RECONCILIATION COMPLETED ON PATIENT USING EXTERNAL FILL HISTORY FROM PHARMACY. -ROBIN SCHWAB, DANETTED
[2022-05-11 08:00] VITALS: BP 181/93; PULSE 78; RESP 16; TEMP 36.8; O2SAT 95
--- NOTE | 2022-05-11 08:00 | CA_ITS ---
APPROVED REPORT EXAM: Comprehensive 2D, Doppler, and color-flow Echocardiogram Core Drier: Desirae Remy RT(R) Ht: 5 ft 9 in Wt: 230lbs BSA: 2.19 BP: 148/87 mmHg Indications: smoker, syncope, HTN, hyperlipidemia, CAD, dizziness, marijuana usage. 2D Dimensions LVOT 2.11 cm (M/F) 1.5-2.5 LA Volume 32.00 mL LA Volume Index 14.61 mL/m2 (M/F) 16-34 M-Mode Dimensions RVDd 1.93 cm (0.9-2.6) LA Diam 4.04 cm (1.9-4.0) LVDd 3.94 cm (3.5-5.7) Ao Diam 3.19 cm (2.0-3.7) LVDs 3.14 cm (3.5-5.7) IVSd 0.97 cm (0.6-1.1) PWd 1.09 cm (0.6-1.1) EF (Teich) 42.10% FS 20.30% EDV (Teich) 67.50 mL ESV (Teich) 39.10 mL LV Diastology E Decel Time 180.00 (160-240 msec) E/A Ratio 0.8 MED E' 8.10 (< 7 cm/sec) E'/MED E' Ratio 8.74 (>14) LAT E' 8.30 (<10 cm/sec) E/LAT E' Ratio 8.53 (>14) Mitral Valve MV E Max Gwyn. 71.00 (40-130 cm/s) MV A Velocity 88.00 (40-130 cm/s) E/A Ratio 0.80 MV Decel. Time 180.00 (160-240 ms) MV PHT 53.00 ms Left Ventricle Technically difficult study because of the patient factors and poor acoustic windows. Left atrium is mildly enlarged, left ventricle is normal size, estimated ejection fraction 55% with no regional wall motion abnormality, grade 1 diastolic dysfunction seen without tissue Doppler evidence of raise left atrial pressure. Right Ventricle Right atrium and right ventricle are normal size and contractility. Aortic Valve Aortic valve is minimally thickened and fibrosed there is no aortic stenosis or aortic insufficiency. Mitral Valve Mitral valve grossly normal, there is trace mitral regurgitation. Tricuspid Valve Tricuspid grossly normal, there is trace tricuspid regurgitation, tricuspid regurgitation jet velocity is inadequate for calculation of the right ventricular systolic pressure. Pulmonic Valve Pulmonic valve is poorly visualized. Great Vessels Aortic root is normal size. Inferior vena cava normal size with normal inspiratory collapse. Pericardium No significant pericardial effusion noted. Conclusion 1. Mildly enlarged left atrium, normal left ventricular size, mild concentric left ventricular hypertrophy, estimated ejection fraction 55% with no regional wall motion abnormality, grade 1 diastolic dysfunction seen without tissue Doppler evidence of raise left atrial pressure. 2. Trace mitral and tricuspid regurgitation. 3. No significant pericardial fusion. 4. Inferior vena cava normal size with normal inspiratory collapse. Electronically signed by : Rachid Damon MD 05/12/2022 15:45:52
--- NOTE | 2022-05-11 08:04 | HMH.HPDC ---
General - General Admission date:: 05/10/22 Discharge date: 05/11/22 *Admission Date: 05/10/22 *Chief complaint: Syncope *History of present illness: 66-year-old male who lives at home with his and granddaughter who is on several home medications, was in his normal state of fairly active health yesterday until yesterday evening when he began to feel sluggish, very tired and dizzy. His reported that he turned ashen and became unresponsive. She splashed water in his face and he began to become somewhat more arousable, EMS was called and transported him to [facility] for evaluation. Unfortunately, they did not leave any documentation with the ER staff of vital signs or other condition and patient is unaware of what his blood pressure might have been on evaluation by EMS. In the ER and he returned to his normal state of cognition, blood pressure was in the 140-150 on the systolic side and he was alert and oriented. Labs, chest x-ray, cognitive testing and CT scan were unremarkable but he was kept overnight for observation. He notes that recently has been struggling with midthoracic back pain has been extremely sharp and has limited activities. He notes that it is nothing new and that he had no other aches or pains with this episode yesterday. He denies GI symptoms, recent illnesses, he denies that he was out working in the heat, did notice that he drove to [facility] but was in an air conditioned truck the entire time yesterday. No at home is been ill. He stated that he had a similar episode of this about 6 years ago and has been fine since that time. [facility] History I have reviewed the patient's past medical history: Yes Medical History: Reports:: Coronary Artery Disease, Hyperlipidemia, Hypertension, Myocardial Infarction Denies:: Cancer, Diabetes Mellitus Type 1, Diabetes Mellitus Type 2, Internal Pacemaker, MRSA, Seizures *Have you ever received a pneumonia vaccine?: No *Have you received a flu vaccine this season?: No Other Medical History: Reports: Arthritis. Denies: Blood Transfusion Reaction Laterality Cases: Bilateral: Other Other Surgeries: Yes: Cardiac Surgery, Cholecystectomy, Hernia Repair. No: Pacemaker Amputation: No Fractures: No - *Social History Smoking Status: Former smoker Alcohol Intake: never Substance Use Type: marijuana *Occupational Status:: retired Housing: house Household Members: spouse, children *Travel in the last 8 weeks: None Family Hx:: No significant family history Review of Systems - Review of Systems Review of systems:: pertinent systems reviewed and negative unless documented below - *Neurologic Denies localized weakness, Denies headache(s), Denies seizure-like activity Exam Vital signs and Labs for Last 24 Hours: Temp Pulse Resp BP Pulse Ox 97.7 F 73 20 160/90 H 97 05/11/22 04:00 05/11/22 04:00 05/11/22 04:00 05/11/22 04:00 05/11/22 04:00 Laboratory Results - last 24 hr 05/10/22 19:53: WBC 8.5, RBC 4.83, Hgb 15.3, Hct 44.6, MCV 92.4, MCH 31.7 H, MCHC 34.3, RDW 13.6, Plt Count 235, MPV 8.5, Neut % (Auto) 60.7, Lymph % (Auto) 28.0, [place] % (Auto) 5.7, Eos % (Auto) 2.8, Baso % (Auto) 2.7 H, Neut # (Auto) 5.1, Lymph # (Auto) 2.4, [place] # (Auto) 0.5, Eos # (Auto) 0.2, Baso # (Auto) 0.2, ESR 16 05/10/22 19:53: Sodium 137, Potassium 4.1, Chloride 105, Carbon Dioxide 25, Anion Gap 11.1, BUN 23 H, Creatinine 1.00, Estimated Creat Clear 110, Estimated GFR 75, Est GFR ( Amer) 91, Glucose 140 H, Calcium 9.3, Magnesium 1.7, Troponin I < 0.01, C-Reactive Protein 1.8, Procalcitonin 0.052 05/10/22 20:27: Urine Color Yellow, Urine Appearance Clear, Urine pH 5.5, Ur Specific [place] >= 1.030, Urine Protein 1+, Urine Glucose (UA) Negative, Urine Ketones Negative, Urine Blood Trace-i, Urine Nitrate Negative, Urine Bilirubin Negative, Urine Urobilinogen 0.2, Ur Leukocyte Esterase Negative, Urine RBC 3-5, Urine WBC Occasional, Ur Squamous Epith Cells 3-5, Calcium Oxalate Cr
--- NOTE | 2022-05-11 09:52 | PC.NURSE ---
x 1 DOSE OF TORADOL GIVEN TO PT FOR BACK PAIN FRIOR TO D/C. ALSO ENCOURAGED TO F/U WITH PCP, CARDIOLOGY AND PAIN MANAGEMENT.
--- NOTE | 2022-05-12 12:57 | CARE MANAGER ---
Called and spoke to patient regarding post discharge status. Mr. Cruz stated that he is feeling better, just continues to have chronic pain in his back. He confirmed that he plans to attend his f/u with DARYL Martinez on 05/23. No known needs at this time.
== END 2022-05-11 09:30 | disposition home or self-care (01) ==
LOC: ER 19:40 → 2ND 23:13
PROVIDERS: Admitting Provider Internal Medicine Adolescent Medicine; Emergency Provider Emergency Medicine; PCP Nurse Practitioner Family; Visit Provider Internal Medicine Adolescent Medicine
DX: R55 Syncope and collapse (principal); I25.10 Atherosclerotic heart disease of native coronary artery without angina pectoris; I10 Essential (primary) hypertension; I25.2 Old myocardial infarction; Z79.899 Other long term (current) drug therapy; Z20.822 Contact with and (suspected) exposure to COVID-19
CPT/HCPCS: 36415; 70450; 80048; 81001; 83735; 84145; 84484; 85025; 85651; 86140; 93005; 93306; 99285; C9803; G0378; U0003; U0005

== ENCOUNTER → 2023-05-18 09:43 | Outpatient (CLI) | payer MEDICARE, SELFPAY ==
[2023-05-18 09:57] LABS: Microscopic, Urine URINE MICROSCOPIC (MICROSCOPIC)
[2023-05-18 10:32] LABS: Appearance,Urine CLEAR (Clear); Basophils % 0.5 % (0.1-2.0); Bilirubin,Urine Negative (Negative); Blood, Urine 2+ (Negative); Color,Urine YELLOW (Yellow); Eosinophils # 0.2 K/mm3 (0.0-0.4); Eosinophils % 2.4 % (0.1-12.0); Glucose,Urine (UA) Negative (Negative); Hemoglobin 15.8 g/dL (14.1-18.0); Ketones,Urine Negative (Negative); Leukocyte Esterase,Urine TRACE (Negative); Lymphocytes # 2.1 K/mm3 (0.7-4.5); Lymphocytes % 31.4 % (10-50); Mean Corpuscular HGB Conc 32.9 g/dL (31.8-35.4); Mean Corpuscular Hemoglobin 29.9 pg (27.0-31.2); Mean Corpuscular Volume 90.8 fl (80-94); Mean Platelet Volume 8.7 fl (7.4-10.4); Monocytes # 0.4 K/mm3 (0.1-1.0); Monocytes % 5.3 % (1.7-9.3); Neutrophils # 4.1 K/mm3 (1.8-7.8); Neutrophils % 60.4 % (37.0-80.0); Nitrate,Urine Negative (Negative); Platelet Count 249 K/mm3 (142-424); Protein,Urine 1+ (Negative); Red Blood Count 5.29 M/mm3 (4.60-6.20); Red Cell Distribution Width 13.6 % (11.5-17.5); Specific Gravity, Urine >= 1.030 (1.005-1.030); Urobilinogen,Urine 0.2 EU/dl (0.2); White Blood Count 6.8 K/mm3 (4.8-10.8)
[2023-05-18 10:55] LABS: Bacteria,Urine 2+ /lpf; Squamous Epithelial Cell,Urine Occasional #/hpf (0-5)
[2023-05-18 11:00] LABS: Anion Gap 16.6 mEq/L (5-15); Blood Urea Nitrogen 15 mg/dl (9-20); Calcium 9.9 mg/dl (8.4-10.2); Carbon Dioxide 24 mmol/L (22.0-30.0); Chloride 105 mmol/L (98-107); Estimated Glomerular Filt Rate 85 ml/min (>60); GFR (African American) 102 ML/MIN (>60); Glucose 104 mg/dl (74-100); Potassium 4.6 mmoL/L (3.5-5.1); Sodium 141 mmol/L (136-145)
== END ==
PROVIDERS: PCP Family Medicine; Visit Provider Surgery
DX: K43.9 Ventral hernia without obstruction or gangrene (principal); R10.9 Unspecified abdominal pain
CPT/HCPCS: 36415; 80048; 81001; 85025; 87086

== ENCOUNTER → 2023-06-04 11:34 | Outpatient (CLI) | payer MEDICARE, MEDICAID, SELFPAY | PROVIDERS: PCP Family Medicine; Visit Provider Physician Assistant | DX: E78.5 Hyperlipidemia, unspecified (principal); I10 Essential (primary) hypertension; I25.10 Atherosclerotic heart disease of native coronary artery without angina pectoris; R00.0 Tachycardia, unspecified; R06.00 Dyspnea, unspecified | CPT/HCPCS: 93306 ==

== ENCOUNTER 2023-06-14 06:39 | Day surgery (SDC) | payer MEDICARE, MEDICAID, SELFPAY ==
[2023-06-14] VITALS (12 sets, daily range): BP systolic 143–181; BP diastolic 72–98; PULSE 66–81; RESP 16–22; TEMP 36.4–43; O2SAT 96–98; BMI 34.0
--- NOTE | 2023-06-14 08:11 | P.PNANES_ITS ---
[facility] Disclaimer: The information contained in this section may have been updated after the patient was seen, as this information can be updated by other users. Medical History Chronic thoracic back pain Hyperlipidemia Hypertension Left flank pain Lung nodule seen on imaging study Syncope Surgical History H/O heart artery stent H/O hernia repair History of cholecystectomy Family History Mother Cancer Father Heart attack Other Diabetes Hypertension Social History Smoking Status: Former smoker alcohol intake: never substance use type: marijuana current occupational status: retired Travel in the last 8 weeks: None household members: spouse and family housing: house lives independently: No education level: high school service: No detention: No current occupational exposures/hazards: No caffeine: Yes special joaquin needs: No agree to transfusion: No do you feel safe at home: Yes victim of physical abuse: No victim of emotional abuse: No victim of sexual abuse: No would you like helpful sources: No [facility] Anesthesia Checklist Patient Identification Patient Identification: Arm Band and Family Structural Data Admitted From: Home Planned Operative Procedure/s: Ubilical hernia repair. Consent for Planned Operative Procedure(s) Verified: Yes Verified Documents: Surgical Consent and History and Physical NPO Status Verified Time NPO: 00:00 Additional verifications Patient : No Anesthesia Reactions: No Hx Blood Transfusions: No Blood Transfusion Reaction: No Cephalosporin Allergy: No Previous Colonoscopy: No Airway Assessment C-Spine Mobility Assessed: Yes TMJ Mobility Assessed: Yes Dentition: Edentulous Neurological Assessment Level of Consciousness: Awake, Alert, Appropriate and Follows Commands Hx Seizures: No Numbness or tingling in extremities: No Anesthesia Plan Anesthesia Risk discussed: Yes ASA Class: III Anesthesia Type: General Preoperative Comments Pre-Operative Comments: Cardiac stents X5. Hpertension. Smokes THC. Takes statin drugs.
--- NOTE | 2023-06-14 09:33 | EXP.OP.NOTE ---
Date of procedure: 06/14/23 Pre-op Diagnosis:: Periumbilical hernia Post-op Diagnosis:: Same Procedure performed:: Laparoscopic-assisted open primary repair of periumbilical hernia (no mesh) Surgeon:: Frederick Yañez MD Anesthesia: GETA Estimated blood loss (mL): 15 Operative findings:: No obvious recurrence at site of prior umbilical hernia repair with mesh Significant intra-abdominal adhesions secondary to prior surgery Small fingertip defect just to the right of prior mesh placement 0 Ethibond used to fix hernia primarily Operative note:: After informed consent was obtained the patient was taken to the operating room and placed in the supine position. General anesthesia was induced and his abdomen was prepped and draped in a sterile fashion. After infiltration local anesthetic a small stab incision was made in the left upper quadrant. A Veress needle was placed in position. The abdomen was insufflated. A 5 mm optical trocar was placed on the left flank. 2 additional left flank trocars were then placed under direct visualization. Significant intra-abdominal adhesions noted. A large portion of omentum was adhered to the periumbilical region (site of prior repair with mesh). No obvious adhesed bowel was seen. Blunt dissection was utilized to carefully take down the omentum. A small fingertip defect was then noted to the right lateral margin of the prior mesh repair. No obvious recurrence at the site of prior repair noted. The decision was made to proceed with primary closure. After infiltration local anesthetic an incision was made overlying the defect. The subcutaneous tissue was bluntly dissected. The fingertip defect was then reapproximated with interrupted 0 Ethibond. No mesh was placed. Pneumoperitoneum was released as the trocars were removed. All wounds were irrigated and skin was closed with interrupted 4-0 Monocryl in a mattress fashion to facilitate hemostasis. Condition: stable Disposition: PACU Specimens:: None Complications:: No immediate
--- NOTE | 2023-06-14 09:50 | EXP.ANES.I ---
[facility] Anesthesia Record Part I Anesthesia Record I Intake, IV Amount: 1,100 Estimated blood loss (mL): 2 Urine output (mL): 0 Blood Products used (#): none Blood Pressure: 181/98 SaO2: 97 Pulse Rate: 77 Respiratory Rate: 22 Temperature: 97.5 F Patient is:: Drowsy and Stable Stable to PACU at:: 09:45
--- NOTE | 2023-06-18 07:40 | P.PNANES_ITS ---
[facility] Anesthesia Record Part II Anesthesia Record Part II Discharge Time: 10:25 (06/14/23) Destination: Surgical Day Care (OP Surgery) PACU nurse assessment reviewed?: Yes Patient Condition:: Good Anesthesia Complications:: None Swallowing reflex intact?: Yes Cyanosis?: No Blood Pressure: 147/84 Pulse Rate: 66 Temperature: 97.7 F Mental Status: Alert & Oriented Pain level:: 0 Nausea and/or vomitting:: None Intake, IV Amount: 0
[2023-06-18 07:41] VITALS: BP 147/84; PULSE 66; TEMP 36.5
== END 2023-06-14 10:59 | disposition home or self-care (01) ==
PROVIDERS: PCP Family Medicine; Visit Provider Surgery
PROC: 0WQF4ZZ Repair Abdominal Wall, Percutaneous Endoscopic Approach (ICD-10-PCS; principal; 2023-06-14 08:30)
DX: K42.9 Umbilical hernia without obstruction or gangrene (principal); K66.0 Peritoneal adhesions (postprocedural) (postinfection)
CPT/HCPCS: 49613; 96374; J2405

== ENCOUNTER 2023-09-20 15:20 | Emergency (ER) | payer MEDICARE, MEDICAID, SELFPAY ==
[2023-09-20 15:30] VITALS: BP 160/95; PULSE 103; RESP 20; TEMP 37.1; O2SAT 97; BMI 34.0
--- NOTE | 2023-09-20 15:35 | EXP.UTC ---
Discharge Plan Disposition Patient Disposition: Home, Self-Care Condition: Good Prescriptions Prescriptions: New ciprofloxacin HCl [Cipro] 500 mg tablet 500 mg PO BID 10 Days Qty: 20 0RF No Action atorvastatin 40 mg tablet 40 mg PO DAILY 90 Days Qty: 90 0RF losartan 50 mg tablet 50 mg PO DAILY 90 Days Qty: 90 0RF Patient Comments: TAKE 1 TABLET ONCE A DAY diclofenac sodium 50 mg tablet,delayed release (DR/EC) 50 mg PO TID PRN (Reason: back pain) Qty: 30 1RF Rx Instructions: Do not take with Meloxicam Referrals Follow up/Referrals: George Monroy MD [Primary Care Provider] - See instructions Activity Restrictions/Add. Instructions Additional Instructions/Restrictions: Drink plenty of fluids. Take tylenol or ibuprofen for pain or fever. Take the medications as directed. Follow up with your regular doctor. GO TO THE ER FOR ANY WORSENING SYMPTOMS We will culture the urine. That will tell what bacteria is causing your infection and which antibiotics will treat it best. Sometimes the first antibiotic we prescribe turns out to not work against different bacteria. So, make sure you follow up within 3 days if you are not getting better. Clinical Impressions Clinical Impression: UTI (urinary tract infection) Instructions Patient Instructions: Urinary Tract Infection, DI for Urinary Tract Infection (UTI), Ceftriaxone Injection, Ciprofloxacin, Ketorolac Injection Discharge ED Provider: Kentrell El [facility] General Stated complaint: RT side abd pain Time Seen by Provider: 09/20/23 15:35 History of Present Illness Provider Complaint: He states that for the past 3 days he has had right side pain that radiates to his groin. He states that at times his pain has been worse. Right now he rates it as a 4/10. At its worst it has been a 8/10. He denies any hematuria, but he has had burning with urination and foul smelling urine since these symptoms began. He does still have his appendix. He denies nausea/vomiting. Related Data Previous Rx's Medication Instructions Recorded atorvastatin 40 mg tablet 40 mg PO DAILY Cholesterol 90 days 08/16/23 #90 tabs losartan 50 mg tablet 50 mg PO DAILY Hypertension 90 08/16/23 days #90 tabs diclofenac sodium 50 mg 50 mg PO TID PRN back pain #30 tabs 09/06/23 tablet,delayed release ciprofloxacin HCl 500 mg tablet 500 mg PO BID 10 days #20 tabs 09/20/23 (Cipro) Allergies Allergy/AdvReac Type Severity Reaction Status Date / Time No Known Allergies Allergy Verified 07/24/23 09:37 [facility] Disclaimer: The information contained in this section may have been updated after the patient was seen, as this information can be updated by other users. Medical History Chronic thoracic back pain Hyperlipidemia Hypertension Left flank pain Lung nodule seen on imaging study Syncope Surgical History H/O heart artery stent H/O hernia repair History of cholecystectomy Family History Mother Cancer Father Heart attack Other Diabetes Hypertension Social History Smoking Status: Former smoker alcohol intake: never substance use type: marijuana current occupational status: retired Travel in the last 8 weeks: None household members: spouse and family housing: house lives independently: No education level: high school service: No group home: No current occupational exposures/hazards: No caffeine: Yes special joaquin needs: No agree to transfusion: No do you feel safe at home: Yes victim of physical abuse: No victim of emotional abuse: No victim of sexual abuse: No would you like helpful sources: No ROS Obtained: Yes All systems reviewed & no additional
[2023-09-20 15:43] LABS: Apearance,Urine Cloudy (Clear); Color,Urine Dark Yellow (Yellow); PH,Urine 5.5 (5.0-8.5)
[2023-09-20 15:44] LABS: Bilirubin,Urine 1+ (Negative); Blood, Urine 3+ (Negative); Glucose,Urine (UA) Negative (Negative); Ketones,Urine Negative (Negative); Protein,Urine 2+ (Negative); Specific Gravity, Urine >= 1.030 (1.005-1.030); UTC Leukocyte Esterase,Urine 1+ (Negative); UTC Nitrate,Urine Negative (Negative); Urobilinogen,Urine 0.2 EU/dl (0.2)
[2023-09-20 16:08] VITALS: BP 160/95; PULSE 103; RESP 20; TEMP 37.1; O2SAT 97
== END 2023-09-20 16:24 | disposition home or self-care (01) ==
PROVIDERS: Emergency Provider Nurse Practitioner Family; PCP Family Medicine
DX: N39.0 Urinary tract infection, site not specified (principal); R10.31 Right lower quadrant pain; I10 Essential (primary) hypertension; E78.5 Hyperlipidemia, unspecified; Z87.891 Personal history of nicotine dependence
CPT/HCPCS: 81003; 87086; 96372; 99204; 99212; G0463; J0696

== ENCOUNTER → 2023-09-26 16:57 | Outpatient (CLI) | payer MEDICARE, MEDICAID, SELFPAY ==
[2023-09-26 16:57] LABS: Basophils # 0.1 K/mm3 (0-0.2); Basophils % 0.7 % (0.1-2.0); Eosinophils # 0.3 K/mm3 (0.0-0.4); Eosinophils % 3.7 % (0.1-12.0); Hematocrit 46.4 % (42.0-52.0); Hemoglobin 15.9 g/dL (14.1-18.0); Lymphocytes % 39.3 % (10-50); Mean Corpuscular HGB Conc 34.3 g/dL (31.8-35.4); Mean Corpuscular Hemoglobin 32.3 pg (27.0-31.2); Mean Corpuscular Volume 94.1 fl (80-94); Mean Platelet Volume 9.3 fl (7.4-10.4); Monocytes # 0.4 K/mm3 (0.1-1.0); Monocytes % 5.7 % (1.7-9.3); Neutrophils # 3.8 K/mm3 (1.8-7.8); Neutrophils % 50.5 % (37.0-80.0); Platelet Count 266 K/mm3 (142-424); Red Blood Count 4.93 M/mm3 (4.60-6.20); Red Cell Distribution Width 13.7 % (11.5-17.5); White Blood Count 7.6 K/mm3 (4.8-10.8)
[2023-09-26 17:31] LABS: Alanine Aminotransferase 38 U/L (12-78); Albumin Level 4.3 g/dl (3.5-5.0); Albumin/Globulin Ratio 1.4 (1.1-1.8); Alkaline Phosphatase 111 U/L (38-126); Anion Gap 15.8 mEq/L (5-15); Aspartate Amino Transferase 35 U/L (17-59); Bilirubin,Total 0.7 mg/dl (0.2-1.3); Blood Urea Nitrogen 12 mg/dl (9-20); Calcium 10.3 mg/dl (8.4-10.2); Carbon Dioxide 25 mmol/L (22.0-30.0); Chloride 104 mmol/L (98-107); Estimated Glomerular Filt Rate 85 ml/min (>60); GFR (African American) 102 ML/MIN (>60); Globulin 3.1 g/dL (1.3-3.2); Glucose 112 mg/dl (74-100); Potassium 4.8 mmoL/L (3.5-5.1); Sodium 140 mmol/L (136-145); Total Protein,Serum 7.4 g/dl (6.3-8.2)
== END ==
PROVIDERS: PCP Nurse Practitioner Family; Visit Provider Nurse Practitioner Family
DX: N39.0 Urinary tract infection, site not specified (principal); R10.9 Unspecified abdominal pain
CPT/HCPCS: 80053; 85025

== ENCOUNTER → 2023-09-27 07:01 | Outpatient (CLI) | payer MEDICARE, SELFPAY ==
--- NOTE | 2023-09-27 07:02 | CT_ITS ---
FINAL REPORT CLINICAL HISTORY: right flank pain COMPARISON: 05/14/2021 FINDINGS: Axial CT images of the abdomen and pelvis were obtained without intravenous contrast. Coronal reformatted images were also obtained.This study was performed with techniques to keep radiation doses as low as reasonably achievable (ALARA). Individualized dose reduction techniques using automated exposure control or adjustment of mA and/or kV according to the patient's size were employed. Abdomen:The lung bases are clear. There is moderate right hydronephrosis secondary to a 14 mm right UPJ stone. The patient is status post cholecystectomy. The liver, spleen and pancreas have an unremarkable, unenhanced appearance. No mass or adenopathy is seen. No inflammatory process is identified. Pelvis: The appendix is normal. There are bilateral inguinal hernias containing fat.No mass or abnormal fluid collection is identified. IMPRESSION: Moderate right hydronephrosis secondary to a UPJ stone. Reviewed, Interpreted and Dictated by Mateusz Glez III, MD Transcribed by Mariana Jackson Authenticated and [facility] [place]
== END ==
PROVIDERS: PCP Nurse Practitioner Family; Visit Provider Nurse Practitioner Family
DX: N39.0 Urinary tract infection, site not specified (principal); R10.9 Unspecified abdominal pain
CPT/HCPCS: 74176

== ENCOUNTER 2023-11-06 10:24 | Emergency (ER) | payer MEDICARE, SELFPAY ==
[2023-11-06] VITALS (7 sets, daily range): BP systolic 136–170; BP diastolic 79–103; PULSE 71–115; RESP 18–22; TEMP 36.5–36.6; O2SAT 94–98; BMI 34.7
--- NOTE | 2023-11-06 10:32 | PC.NURSE ---
DR ADAM AT BEDSIDE
--- NOTE | 2023-11-06 10:34 | CT_ITS ---
FINAL REPORT TECHNIQUE: Axial images were obtained through the chest without contrast. Sagittal and coronal reformatted images were obtained and reviewed. This study was performed with techniques to keep radiation doses as low as reasonably achievable (ALARA). Individualized dose reduction techniques using automated exposure control or adjustment of mA and/or kV according to the patient's size were employed. CLINICAL HISTORY: Fall, R sided posterior rib pain COMPARISON: 09/27/2023 FINDINGS: There is marked extensive coronary artery calcification. There is scarring at the bases. The heart size is normal. There is no pericardial effusion. Trace bilateral pleural effusions are new. Limited images of the upper abdomen demonstrated nonobstructing stone in the right renal collecting system measuring 6 mm. No suspicious infiltrate or nodule identified. IMPRESSION: Marked extensive coronary artery calcification. Trace bilateral effusions. Nonobstructing right renal stone. Reviewed, Interpreted and Dictated by Skyler Thomas MD Transcribed by Mariana Jackson Authenticated and [facility]
--- NOTE | 2023-11-06 10:35 | HMH.EDGENADL ---
Discharge Plan Disposition Patient Disposition: Home, Self-Care Condition: Good Chief Complaint: Back Pain/Injury Prescriptions Prescriptions: No Action atorvastatin 40 mg tablet 40 mg PO DAILY 90 Days Qty: 90 0RF losartan 50 mg tablet 50 mg PO DAILY 90 Days Qty: 90 0RF Patient Comments: TAKE 1 TABLET ONCE A DAY diclofenac sodium 50 mg tablet,delayed release (DR/EC) 50 mg PO TID PRN (Reason: back pain) Qty: 30 1RF Rx Instructions: Do not take with Meloxicam hydrocodone-acetaminophen 5-325 mg tablet 1 tab PO Q4H PRN (Reason: pain) Qty: 20 0RF ciprofloxacin HCl [Cipro] 500 mg tablet 500 mg PO BID 10 Days Qty: 20 0RF Referrals Follow up/Referrals: George Monroy MD [Primary Care Provider] - See instructions Clinical Impressions Clinical Impression: Contusion of rib on right side Instructions Patient Instructions: DI for Low Back Pain, DI for Rib Contusion Discharge ED Provider: Nathan Barboza General Adult HPI General Chief complaint: Back Pain/Injury Stated complaint: [id number] back pain, home fall Time Seen by Provider: 11/06/23 10:30 History of Present Illness HPI narrative: 67-year-old male with a history of hypertension, hyperlipidemia, CAD status post PCI x 5 vessels on aspirin who presents to the ED with complaints of fall patient was held Sunday, he was standing on his truck bed when he fell backwards, landing backwards directly onto a generator that was on the ground. Patient denies any head trauma, negative LOC. Patient was ambulatory after the fall, but over the past 3 days has been struggling with right-sided posterior back pain. Patient notes shortness of breath secondary to pain with deep inspiration. Related Data Previous Rx's Medication Instructions Recorded atorvastatin 40 mg tablet 40 mg PO DAILY Cholesterol 90 days 08/16/23 #90 tabs losartan 50 mg tablet 50 mg PO DAILY Hypertension 90 08/16/23 days #90 tabs diclofenac sodium 50 mg 50 mg PO TID PRN back pain #30 tabs 09/06/23 tablet,delayed release ciprofloxacin HCl 500 mg tablet 500 mg PO BID 10 days #20 tabs 09/20/23 (Cipro) hydrocodone 5 mg-acetaminophen 325 1 tab PO Q4H PRN pain #20 tabs 11/02/23 mg tablet Allergies Allergy/AdvReac Type Severity Reaction Status Date / Time No Known Allergies Allergy Verified 09/26/23 09:55 [facility] Disclaimer: The information contained in this section may have been updated after the patient was seen, as this information can be updated by other users. Medical History (Updated 11/06/23 @ 13:07 by Nathan Barboza MD) Chronic thoracic back pain Dyspnea Hyperlipidemia Hypertension Left flank pain Lung nodule seen on imaging study Syncope Surgical History H/O heart artery stent H/O hernia repair History of cholecystectomy Family History Mother Cancer Father Heart attack Other Diabetes Hypertension Social History Smoking Status: Former smoker alcohol intake: never substance use type: marijuana current occupational status: retired Travel in the last 8 weeks: None household members: spouse and family housing: house lives independently: No education level: high school service: No snf: No current occupational exposures/hazards: No caffeine: Yes special joaquin needs: No agree to transfusion: No do you feel safe at home: Yes victim of physical abuse: No victim of emotional abuse: No victim of sexual abuse: No would you like helpful sources: No ROS Obtained: Yes All systems reviewed & no additional complaints except as documented Physical Exam General General appearance: alert and in no apparent distress Head Head exam: atraumatic, normocephalic and normal inspection Eye Eye exam: Pre
[2023-11-06 11:23] LABS: Basophils # 0.1 K/mm3 (0-0.2); Basophils % 0.7 % (0.1-2.0); Eosinophils # 0.3 K/mm3 (0.0-0.4); Eosinophils % 3.2 % (0.1-12.0); Hematocrit 47.2 % (42.0-52.0); Hemoglobin 16.5 g/dL (14.1-18.0); Lymphocytes # 2.8 K/mm3 (0.7-4.5); Lymphocytes % 36.2 % (10-50); Mean Corpuscular HGB Conc 34.8 g/dL (31.8-35.4); Mean Corpuscular Volume 91.8 fl (80-94); Mean Platelet Volume 8.2 fl (7.4-10.4); Monocytes # 0.6 K/mm3 (0.1-1.0); Neutrophils # 4.2 K/mm3 (1.8-7.8); Platelet Count 219 K/mm3 (142-424); Red Blood Count 5.15 M/mm3 (4.60-6.20); Red Cell Distribution Width 14.1 % (11.5-17.5); White Blood Count 7.8 K/mm3 (4.8-10.8)
[2023-11-06 11:29] LABS: Chloride 106 mmol/L (98-107); Potassium 4.5 mmoL/L (3.5-5.1); Sodium 140 mmol/L (136-145)
[2023-11-06 11:32] LABS: Alanine Aminotransferase 36 U/L (12-78); Albumin Level 4.5 g/dl (3.5-5.0); Albumin/Globulin Ratio 1.3 (1.1-1.8); Alkaline Phosphatase 102 U/L (38-126); Anion Gap 9.5 mEq/L (5-15); Aspartate Amino Transferase 32 U/L (17-59); Bilirubin,Total 0.7 mg/dl (0.2-1.3); Blood Urea Nitrogen 13 mg/dl (9-20); Carbon Dioxide 29 mmol/L (22.0-30.0); Creatinine Clearance Estimated 111 mL/min (50-200); Estimated Glomerular Filt Rate 75 ml/min (>60); GFR (African American) 91 ML/MIN (>60); Globulin 3.5 g/dL (1.3-3.2)
[2023-11-06 11:33] LABS: Calcium 9.9 mg/dl (8.4-10.2); Glucose 108 mg/dl (74-100)
--- NOTE | 2023-11-06 13:04 | PC.NURSE ---
DR ADAM SPEAKING WITH RADIOLOGIST
== END 2023-11-06 13:18 | disposition home or self-care (01) ==
PROVIDERS: Emergency Provider Emergency Medicine; PCP Family Medicine
DX: S20.211A Contusion of right front wall of thorax, initial encounter (principal); I25.10 Atherosclerotic heart disease of native coronary artery without angina pectoris; I10 Essential (primary) hypertension; E78.5 Hyperlipidemia, unspecified; Z79.82 Long term (current) use of aspirin; W17.89XA Other fall from one level to another, initial encounter; Z87.891 Personal history of nicotine dependence
CPT/HCPCS: 71250; 80053; 85025; 96374; 96375; 99285; J2405

== ENCOUNTER 2024-07-11 11:40 | Outpatient (CLI) | payer MEDICARE, SELFPAY ==
--- NOTE | 2024-07-11 11:45 | XR_ITS ---
FINAL REPORT CLINICAL HISTORY: poss kidney stones COMPARISON: None FINDINGS: SINGLE VIEW ABDOMEN A single view of the abdomen was obtained. There is a nonobstructive bowel gas pattern. There are no abnormally dilated loops of small bowel. There is a 10 mm radiodensity along the medial aspect of the right kidney which may represent a right renal stone or stone in the right renal pelvis. There are postoperative changes in the right upper quadrant. Degenerative changes are noted in the spine. IMPRESSION: Possible right renal stone or stone of the right renal pelvis. Reviewed, Interpreted and Dictated by Mateusz Glez III, MD Transcribed by Saundra Pinto Authenticated and [facility]
== END 2024-07-11 23:59 | disposition home or self-care (01) ==
LOC: RAD 11:42
PROVIDERS: PCP Family Medicine; Visit Provider Family Medicine
DX: R10.9 Unspecified abdominal pain (principal)
CPT/HCPCS: 74018

== ENCOUNTER 2024-08-26 10:00 | Outpatient (CLI) | payer MEDICARE, SELFPAY | END 2024-08-26 23:59 | disposition home or self-care (01) | LOC: LAB.DROPOF 08-27 11:02 | PROVIDERS: PCP Family Medicine; Visit Provider Family Medicine | DX: N20.0 Calculus of kidney (principal); N39.0 Urinary tract infection, site not specified | CPT/HCPCS: 87086 ==

== ENCOUNTER 2025-01-21 10:33 | Outpatient (CLI) | payer MEDICARE, SELFPAY ==
[2025-01-21 16:43] LABS: Basophils % 0.4 % (0.1-2.0); Eosinophils # 0.3 K/mm3 (0.0-0.4); Eosinophils % 3.3 % (0.1-12.0); Lymphocytes # 2.6 K/mm3 (0.7-4.5); Lymphocytes % 33.7 % (10-50); Mean Corpuscular HGB Conc 32.6 g/dL (31.8-35.4); Mean Corpuscular Hemoglobin 30.9 pg (27.0-31.2); Mean Corpuscular Volume 94.8 fl (80-94); Mean Platelet Volume 10.5 fl (7.4-10.4); Monocytes # 0.6 K/mm3 (0.1-1.0); Monocytes % 7.6 % (1.7-9.3); Neutrophils # 4.3 K/mm3 (1.8-7.8); Neutrophils % 54.7 % (37.0-80.0); Platelet Count 225 K/mm3 (142-424); Red Blood Count 4.85 M/mm3 (4.60-6.20); Red Cell Distribution Width 13.4 % (11.5-17.5); White Blood Count 7.8 K/mm3 (4.8-10.8)
[2025-01-21 17:42] LABS: Alanine Aminotransferase 32 U/L (12-78); Albumin Level 4.5 g/dl (3.5-5.0); Albumin/Globulin Ratio 1.5 (1.1-1.8); Alkaline Phosphatase 96 U/L (38-126); Anion Gap 10.8 mEq/L (5-15); Aspartate Amino Transferase 30 U/L (17-59); Bilirubin,Total 0.9 mg/dl (0.2-1.3); Blood Urea Nitrogen 15 mg/dl (9-20); Calcium 10.5 mg/dl (8.4-10.2); Carbon Dioxide 25 mmol/L (22.0-30.0); Chloride 108 mmol/L (98-107); Chol/HDL Ratio 2.3 (1-3.5); Cholesterol 136 mg/dl (140-200); Estimated Glomerular Filt Rate 96 ml/min (>60); GFR (African American) 117 ML/MIN (>60); Globulin 3.1 g/dL (1.3-3.2); Glucose 96 mg/dl (74-100); HDL Cholesterol 59 mg/dl (40-60); Potassium 4.8 mmoL/L (3.5-5.1); Sodium 139 mmol/L (136-145); Total Protein,Serum 7.6 g/dl (6.3-8.2); Triglycerides 51 mg/dl (30-150); VLDL Cholesterol 10 mg/dL (0-40)
[2025-01-21 17:54] LABS: Direct LDL Cholesterol 53.72 mg/dL (100-129)
[2025-01-21 19:20] LABS: HIV Combo NEGATIVE (Negative)
[2025-01-21 19:27] LABS: Hepatitis C Ab Qual. W/ RFX NEGATIVE (Negative)
== END 2025-01-21 23:59 | disposition home or self-care (01) ==
LOC: LAB.DROPOF 01-22 15:05
PROVIDERS: PCP Family Medicine; Visit Provider Family Medicine
DX: I10 Essential (primary) hypertension (principal); Z11.59 Encounter for screening for other viral diseases; Z11.4 Encounter for screening for human immunodeficiency virus [HIV]
CPT/HCPCS: 80053; 80061; 85025; 86803; 87389